=== PATIENT | female | born 1945 | race Caucasian/White ===

== ENCOUNTER 2024-01-12 07:30 | Observation (INO) ==
[~2024-01-12 07:30] MED LIST: Metoclopramide 5 MG/ML VIAL (10 mg) IV PRN; NS 0.45% 1000 ml BAG 1,000 ML IV SCH; Naloxone 0.4 mg VIAL 0.4 mg/ml 1 ml VIAL IV PRN; Ondansetron 4 mg VIAL 2 MG/ML 2 ml VIAL IV PRN
[2024-01-12] MEDS ORDERED: ceFAZolin 2 GM PREMIX 2 GM/50 ML BAG ONE (14:24)
[2024-01-12] MEDS ORDERED: Buffered Lidocaine 1% SYRIN 1 ml ONE (14:24)
[2024-01-12 14:36] LABS: Rapid COVID-19 Molecular Undetected (Undetected)
[2024-01-12] MEDS: Lactated Ringers 1000 ml BAG 1,000 ML IV SCH ×2 (14:59→22:37)
[2024-01-12] MEDS ORDERED: fentaNYL 100 mcg/2 ml 50 MCG/ML VIAL ONE ×4 (15:48→20:38)
[2024-01-12] MEDS ORDERED: ROPIVACAINE 5 MG/ML 30 ML BTL (0.5%) ONE (15:48)
[2024-01-12] MEDS ORDERED: Midazolam 5 mg/5 ml VIAL 1 mg/ml 5 ml VIAL (5 mg) ONE (15:48)
[2024-01-12] MEDS ORDERED: Ondansetron 4 mg VIAL 2 MG/ML 2 ml VIAL ONE (16:05)
[2024-01-12] MEDS ORDERED: Dexamethasone IV 4 MG/ML VIAL 1 ml VIAL ONE (16:05)
[2024-01-12] MEDS ORDERED: Lidocaine 2% PF 5 ML VIAL ONE (16:05)
[2024-01-12] MEDS ORDERED: Propofol 10 MG/ML 20 ML BTL ONE (16:05)
[2024-01-12] MEDS ORDERED: Bupivacaine 0.5% SDV PF 30ML VIAL ONE (16:34)
[2024-01-12] MEDS ORDERED: Ondansetron 4 mg VIAL 2 MG/ML 2 ml VIAL IV PRN (16:49)
[2024-01-12] MEDS ORDERED: Magnesium Hydroxide LIQ 30 ML UDC PO PRN (16:49)
[2024-01-12] MEDS ORDERED: Ondansetron ODT 4 mg TAB 4 MG TAB PO PRN (16:49)
[2024-01-12] MEDS ORDERED: Lactulose 30 ml UDC PO PRN (16:49)
[2024-01-12] MEDS ORDERED: Calcium Carb (TUMS) 500 mg CHEW TAB PO PRN (16:49)
[2024-01-12] MEDS ORDERED: HYDROmorphone 0.5 MG/0.5 ML SYRINGE ONE (17:19)
[2024-01-12] MEDS ORDERED: Acetaminophen IV 1 GM/100ML 1,000 MG/100 ML BAG IV ONE (20:39)
[2024-01-12] MEDS: Acetaminophen IV 1 GM/100ML 1,000 MG/100 ML BAG IV ONE (20:43)
[2024-01-12] MEDS: fentaNYL 100 mcg/2 ml 50 MCG/ML VIAL IV PRN (20:46)
[2024-01-12] MEDS: Magnesium Hydroxide LIQ 30 ML UDC PO SCH (23:18)
[2024-01-13] MEDS ORDERED: ceFAZolin 2 GM in NS PREMIX 2 GM/100 ML BAG IVPB SCH (01:00)
[2024-01-13] MEDS ORDERED: Fluticasone NASAL SPRAY 50MCG 16 gm SPRAY BTL INTRANASAL PRN (01:31)
[2024-01-13] MEDS: ceFAZolin 2 GM PREMIX 2 GM/50 ML BAG IV SCH (01:43)
[2024-01-13] MEDS: Buffered Lidocaine 1% SYRIN 1 ml INTRADERM ONE (07:05)
[2024-01-13] MEDS: Scopolamine 1 mg/72hr PATCH TRANSDERM ONE (07:05)
[2024-01-13] MEDS: Vitamin THERAPEUTIC TAB PO SCH (08:25)
[2024-01-13 08:32] LABS: Hematocrit 36.4 % (35-45); Hemoglobin 12.1 g/dL (11.5-14.3); Mean Platelet Volume 7.7 fL (7.5-11.2); Platelet Count 223 10^3/uL (150-450)
[2024-01-13 11:06] LABS: Calcium 8.4 mg/dL (8.6-10.3); Creatinine, Serum 0.89 mg/dL (0.51-0.95); Potassium 4.5 mmol/L (3.5-5.0); eGFR CKD-EPI 66.3 (>60)
[2024-01-13] MEDS: Morphine 2 MG/ML SYRINGE IV PRN (11:53)
[2024-01-14 06:55] LABS: Hematocrit 34.3 % (35-45); Hemoglobin 11.2 g/dL (11.5-14.3); Mean Platelet Volume 7.8 fL (7.5-11.2); Platelet Count 182 10^3/uL (150-450)
[2024-01-14 14:28] VITALS: BP 115/49
== END 2024-01-14 18:25 | disposition home or self-care (01) ==
LOC: AA 13:37 → INTOOBSV 13:37 → SSU 19:52
PROVIDERS: ADMIT Orthopaedic Surgery Adult Reconstructive Orthopaedic Surgery; ATTEND Orthopaedic Surgery Adult Reconstructive Orthopaedic Surgery